=== PATIENT | male | born 1985 | race Caucasian/White ===

== ENCOUNTER → 2016-12-26 | Emergency (ER) | payer SELFPAY ==
[~2016-12-26] VITALS: Ht 188 cm; Wt 99.8 kg
[~2016-12-26] MED LIST: ACETAMINOPHEN 500 MG TABLET PO ONE; AMLO5TAB2 PO; AZIT250T6 PO; AZITHROMYCIN 500 MG VIAL. IV ONE; AZITHROMYCIN 500 MG in IV NORMAL SALINE 250ML 250 ML IV ONE; IPRA12.9 IH; IPRATRPIUM/ALBUTEROL 0.5/2.5MG 3 ML NEBU. NEB ONE; IV NORMAL SALINE 1,000ML 1,000 ML IV ONE; IV NORMAL SALINE 250ML 250 ML ONE
--- NOTE | 2016-12-26 00:26 | PHYS DOC ---
Adult General Chief Complaint Chief Complaint: fever, shortness of breath HPI HPI Patient is a 31 year old male who presents with subjective fevers, shortness of breath, generalized weakness and a productive cough. He states he symptoms started couple days ago is been getting worse today. Today he's got left-sided substernal chest pressure that's constant in nature. He also feel short of breath even laying in bed. He does smoke a pack per day and turns about 4 beers per day. He does have a history of hypertension and ran out of his medicines couple days ago. According to his he did a nebulizer treatment today but it didn't help. The nebulizers actually his 's. She states that they're 2 kids are also sick with the same symptoms. Review of Systems Review of Systems Constitutional: Positive for subjective fevers Eyes: Denies change in visual acuity, redness, or eye pain [] HENT: Denies nasal congestion or sore throat [] Respiratory: Positive for productive cough and shortness of breath. Cardiovascular: No additional information not addressed in HPI [] GI: Denies abdominal pain, nausea, vomiting, bloody stools or diarrhea [] : Denies dysuria or hematuria [] Musculoskeletal: Denies back pain or joint pain [] Integument: Denies rash or skin lesions [] Neurologic: Denies headache, focal weakness or sensory changes [] Endocrine: Denies polyuria or polydipsia [] Physical Exam Physical Exam Constitutional: Well developed, well nourished, no acute distress, non-toxic appearance. [] HENT: Normocephalic, atraumatic, bilateral external ears normal, oropharynx moist, no oral exudates, nose normal. [] Eyes: PERRLA, EOMI, conjunctiva normal, no discharge. [] Neck: Normal range of motion, no tenderness, supple, no stridor. [] Cardiovascular:Heart rate tachycardic regular rhythm, no murmur [] Lungs & Thorax: Bilateral breath sounds clear to auscultation [] Abdomen: Bowel sounds normal, soft, no tenderness, no masses, no pulsatile masses. [] Skin: Warm, dry, no erythema, no rash. [] Back: No tenderness, no CVA tenderness. [] Extremities: No tenderness, no cyanosis, no clubbing, ROM intact, no edema. [] Neurologic: Alert and oriented X 3, normal motor function, normal sensory function, no focal deficits noted. [] Psychologic: Affect normal, judgement normal, mood normal. [] EKG EKG EKG shows sinus tachycardia [address] elevations or concerning T- wave inversions, left axis deviation, LVH with early repolarization noted, QTC 400 ms, as interpreted by me. Radiology/Procedures Radiology/Procedures Two-view chest x-ray did not show any focal consolidations, bony abnormalities, or pneumothorax, as interpreted by me.[] Impressions: Bronchitis Fever Tobacco abuse Hypertension Course & Med Decision Making Course & Med Decision Making Pertinent Labs and Imaging studies reviewed. (See chart for details) Labs do not show any acute abnormalities, d-dimer negative. Chest x-ray nonacute , patient felt significantly improved after a DuoNeb. He received IV fluids and azithromycin. He is being discharged home with Atrovent and azithromycin. Return precautions given. He is agreeable plan being discharged in stable condition at this time. His was with him during the entire visit.I do not believe he has any other acute process that requires additional testing or hospitalization at this time. He is encouraged to stop smoking. Dragon Disclaimer Dragon Disclaimer This chart was dictated in whole or in part using Voice Recognition software in a busy, high-work load, and often noisy Emergency Department environment. It may contain unintended and wholly unrecognized errors or omissions. Departure Departure: Impression: Primary Impression: Bronchitis Disposition: 01 HOME, SELF-CARE Condition: STABLE Referrals: ALDO HOANG MD (PCP) Patient Instructions: Acute Bronchitis Additional Instructions: The chest x-ray didn't show any obvious signs of infection. You feel better after he received IV fluids, breathing treatment and antibiotics. Your being discharged home with antibiotics for the next 5 days. You can also take ipratropium which is an inhaler. You should follow up with your primary care physician within the next few days. If your shortness of breath gets worse, you develop high fevers, or other concerns please return back to emergency department. Scripts Ipratropium Laie (ATROVENT HFA) 12.9 Gm Hfa.aer.ad 2 PUFF IH QID Y for SHORTNESS OF BREATH, #12.9 GM 0 Refills Prov: HOLA DOBBS MD 12/26/16 Azithromycin (AZITHROMYCIN TABLET) 250 Mg Tablet 1 PKG PO UD, #6 TAB Prov: HOLA DOBBS MD 12/26/16 HOLA DOBBS MD Dec 26, 2016 00:26
[2016-12-26 01:09] LABS: CALCIUM 8.9 mg/dL (8.5-10.1); CREATININE 1.1 mg/dL (0.7-1.3); GFR 77.1; POTASSIUM 3.9 mmol/L (3.5-5.1)
[2016-12-26 01:17] LABS: BASO # 0.1 x10^3/uL (0.0-0.2); BASO % 1 % (0-3); EOS # 0.3 x10^3/uL (0.0-0.7); EOS % 3 % (0-3); HEMATOCRIT 44.9 % (39.0-53.0); LYMPH # 1.4 x10^3/uL (1.0-4.8); LYMPH % 13 % (24-48); MEAN CORPUSCULAR HEMOGLOBIN 31 pg (25-35); MEAN CORPUSCULAR HGB CONC 36 g/dL (31-37); MEAN CORPUSCULAR VOLUME 88 fL (79-100); MONO # 0.9 x10^3/uL (0.0-1.1); MONO % 8 % (0-9); NEUT # 8.1 x10^3uL (1.8-7.7); NEUT % 75 % (31-73); PLATELET COUNT 186 x10^3/uL (140-400); RED CELL DISTRIBUTION WIDTH 12.2 % (11.5-14.5); WHITE BLOOD COUNT 10.7 x10^3/uL (4.0-11.0)
[2016-12-26 03:14] LABS: BACTERIA,URINE 0 /HPF (0-FEW); BILIRUBIN,URINE NEG (NEG); CLARITY,URINE CLEAR; COLOR,URINE YELLOW; GLUCOSE,URINE NEG (NEG); NITRITE,URINE NEG (NEG); RBC,URINE OCC /HPF (0-2); SQUAMOUS EPITHELIAL CELL,UR FEW /LPF; UROBILINOGEN,URINE 0.2 mg/dL (0.2 mg/dL); WBC,URINE OCC /HPF (0-4)
[2016-12-26 03:23] LABS: INFLUENZA A PATIENT NEGATIVE (NEGATIVE); INFLUENZA B PATIENT NEGATIVE (NEGATIVE)
[2016-12-26 04:15] VITALS: BP 154/93
--- NOTE | 2016-12-26 05:50 | EKG ---
[address] [address] Test Date: 2016-12-26 Test Time: 00:41:35 Pat Name: LIDIA DELVALLE Department: Room: Gender: M Direct Service Professional: DAYANNA : 1985 Requested By: HOLA DOBBS Order Number: [id number] Reading MD: Measurements Intervals Letts Rate: 115 P: -10 DC: 148 QRS: -19 QRSD: 80 T: -10 QT: 288 QTc: 400 Interpretive Statements SINUS TACHYCARDIA LEFT ATRIAL ABNORMALITY LEFTWARD AXIS QRS(T) CONTOUR ABNORMALITY CONSIDER ANTEROSEPTAL MYOCARDIAL DAMAGE T ABNORMALITY IN ANTERIOR LEADS ABNORMAL ECG RI6.01 No previous ECG available for comparison
--- NOTE | 2016-12-26 07:10 | RAD ---
Chest, 2 views, 12/26/2016: History: Cough, fever Comparison is made to a study from 08/20/2012. The heart size and pulmonary vascularity are normal. The right hemidiaphragm is slightly elevated. No pulmonary infiltrate is seen. There is no evidence of pleural fluid. IMPRESSION: No acute cardiopulmonary abnormality is detected.
== END ==
LOC: ER 00:25
DX: J40 Bronchitis, not specified as acute or chronic (principal); I10 Essential (primary) hypertension; F17.210 Nicotine dependence, cigarettes, uncomplicated; R07.89 Other chest pain
CPT/HCPCS: 36415; 71020; 80048; 81001; 83605; 85025; 85379; 87804; 93005; 94640; 96361; 96365; 99285; J0456; J7050; J7620; J7030